=== PATIENT | female | born 1965 | race African-American/Black ===

== ENCOUNTER 2018-03-29 03:59 | Inpatient (IN) | payer MEDICAID ==
[~2018-03-29] VITALS: Ht 167.6 cm; Wt 50.8 kg
[2018-03-29] MEDS ORDERED: IPRATROPIUM BROMIDE (0.02%) 0.5MG/2.5ML NEB HHN STA (05:26)
[2018-03-29] MEDS ORDERED: ALBUTEROL (0.083%) 2.5MG/3ML NEB HHN STA (05:26)
[2018-03-29] MEDS ORDERED: PREDNISONE 20MG TABLET PO STA (05:26)
[2018-03-29] MEDS ORDERED: ALBUTEROL (0.5%) 2.5MG/0.5ML NEB HHN ONE ×2 (05:51→06:45)
[2018-03-29] MEDS ORDERED: IPRATROPIUM/ALBUTEROL 0.5-3(2.5)MG/3ML NEB ONE (05:52)
[2018-03-29] MEDS ORDERED: IPRATROPIUM BROMIDE (0.02%) 0.5MG/2.5ML NEB HHN ONE (06:45)
[2018-03-29 09:31] LABS: BASOPHILS % 0.3 % (0.0-2.0); EOSINOPHILS % 0.5 % (0.0-5.0); HEMATOCRIT. 44.3 % (36.0-48.0); HEMOGLOBIN. 14.3 g/dL (12.0-16.0); LYMPHOCYTES % 11.9 % (20.0-50.0); MEAN CORPUSCULAR HEMOGLOBIN 26.1 pg (28.0-32.0); MEAN CORPUSCULAR VOLUME 80.9 fL (81.0-99.0); MEAN PLATELET VOLUME 7.2 fl (7.4-10.4); NEUTROPHILS % 86.3 % (40.0-76.0); PLATELET 324 x1000/uL (130-400); RED BLOOD CELL COUNT 5.48 mill/uL (4.2-5.4); RED CELL DISTRIBUTION WIDTH 17.2 % (11.6-14.6)
[2018-03-29 09:39] LABS: CHLORIDE 95 mEq/L (98-107)
[2018-03-29 17:27] VITALS: BP 122/81
[2018-03-29 20:00] VITALS: BP 124/77
[2018-03-29 21:45] VITALS: BP 124/77
[2018-03-29] MEDS ORDERED: MAGNESIUM/ALUMINUM HYDROXIDE/SIMETHICONE 30ML UDC PO PRN (23:15)
[2018-03-29] MEDS ORDERED: ONDANSETRON HCL 4MG/2ML INJ IV PRN (23:15)
[2018-03-29] MEDS ORDERED: CLONIDINE 0.1MG TABLET PO PRN (23:15)
[2018-03-29] MEDS ORDERED: GUAIFENESIN 200MG/10ML SUGAR FREE UDC PO PRN (23:15)
[2018-03-29] MEDS ORDERED: ACETAMINOPHEN 325MG TABLET PO PRN (23:15)
[2018-03-30] VITALS: BP 115/68
[2018-03-30] MEDS: OMEPRAZOLE 20MG CAPSULE EXTENDED RELEASE PO SCH ×2 (00:48→10:02)
[2018-03-30 03:03] LABS: CHLORIDE 94 mEq/L (98-107)
[2018-03-30 03:13] LABS: CREATINE KINASE 57 IU/L (26-192); CREATINE KINASE MB FRACTION 1.6 ng/mL (0.5-3.6); HDL CHOLESTEROL 123 mg/dL (40-59); LDL CHOLESTEROL 59 mg/dL (5-100)
[2018-03-30 03:28] LABS: BASOPHILS % 0.4 % (0.0-2.0); HEMATOCRIT. 39.8 % (36.0-48.0); LYMPHOCYTES % 24.2 % (20.0-50.0); MEAN CORPUSCULAR HEMOGLOBIN 26.2 pg (28.0-32.0); MEAN CORPUSCULAR VOLUME 80.3 fL (81.0-99.0); MEAN PLATELET VOLUME 7.5 fl (7.4-10.4); MONOCYTES % 7.5 % (2.0-8.0); NEUTROPHILS % 66.9 % (40.0-76.0); PLATELET 308 x1000/uL (130-400); RED BLOOD CELL COUNT 4.96 mill/uL (4.2-5.4); RED CELL DISTRIBUTION WIDTH 17.4 % (11.6-14.6)
[2018-03-30 04:00] VITALS: BP 121/72
[2018-03-30] MEDS ORDERED: FLUT15.88 BOTHNSTRLS (04:39)
[2018-03-30] MEDS ORDERED: LACT296L PO (04:39)
[2018-03-30] MEDS ORDERED: FAMO20TA8 PO (04:39)
[2018-03-30] MEDS ORDERED: ALBU2.5V13 IH (04:39)
[2018-03-30] MEDS ORDERED: DEXTL MT (04:39)
[2018-03-30] MEDS ORDERED: ALBU6.7H9 INH (04:39)
[2018-03-30] MEDS ORDERED: LACT-252 PO (04:39)
[2018-03-30] MEDS ORDERED: MIRT15TA7 PO (04:39)
[2018-03-30] MEDS ORDERED: ATROV INH (04:39)
[2018-03-30] MEDS ORDERED: ASCO500C15 PO (04:39)
[2018-03-30] MEDS ORDERED: CHOL200074 MT (04:39)
[2018-03-30] MEDS ORDERED: BENZ100C86 PO (04:39)
[2018-03-30] MEDS ORDERED: SODI45SP7 BOTHNSTRLS (04:39)
[2018-03-30] MEDS ORDERED: OMEG-109 MT (04:39)
[2018-03-30] MEDS ORDERED: MONT10TA24 PO (04:39)
[2018-03-30] MEDS ORDERED: MULT1TAB76 MT (04:39)
[2018-03-30 05:24] LABS: BG BASE EXCESS 2.5 mmol/L (-2.0-2.0); BG CARBOXYHEMOGLOBIN 0.7 % (0.5-1.5); BG DEOXYHEMOGLOBIN 2.9 % (0.0-5.0); BG FRACTION INSPIRED OXYGEN 28; BG HCO3 ACT 30.6 mmol/L (22.0-26.0); BG METHEMOGLOBIN 0.4 % (0.0-1.5); BG OXYGEN SATURATION 97.1 % (92.0-98.5); BG PCO2 64.3 mmHg (35.0-45.0); BG PH 7.296 (7.350-7.450); BG PO2 96.4 mmHg (75.0-100.0); BG SAMPLE SITE RIGHT RADIAL; BG TOTAL HEMOGLOBIN 13.2 g/dL (12.0-18.0); BG VENT MODE NASAL CANNULA
[2018-03-30] MEDS: METHYLPREDNISOLONE SOD SUCC 40 MG/ML VIAL IV SCH ×3 (06:22→21:10)
[2018-03-30 07:46] LABS: BASOPHILS % 0.4 % (0.0-2.0); EOSINOPHILS % 1.6 % (0.0-5.0); HEMATOCRIT. 41.2 % (36.0-48.0); HEMOGLOBIN. 13.3 g/dL (12.0-16.0); LYMPHOCYTES % 26.2 % (20.0-50.0); MEAN CORPUSCULAR HEMOGLOBIN 26.2 pg (28.0-32.0); MEAN CORPUSCULAR VOLUME 81.3 fL (81.0-99.0); MEAN PLATELET VOLUME 7.7 fl (7.4-10.4); MONOCYTES % 7.4 % (2.0-8.0); NEUTROPHILS % 64.4 % (40.0-76.0); PLATELET 306 x1000/uL (130-400); RED BLOOD CELL COUNT 5.07 mill/uL (4.2-5.4); RED CELL DISTRIBUTION WIDTH 16.8 % (11.6-14.6)
[2018-03-30 08:00] VITALS: BP 117/77
[2018-03-30] MEDS: ENOXAPARIN 40MG/0.4ML SYR SUBCUT SCH (09:00)
[2018-03-30 12:00] VITALS: BP 113/70
[2018-03-30] MEDS: IPRATROPIUM/ALBUTEROL 0.5-3(2.5)MG/3ML NEB INH PRN (14:51)
[2018-03-30 16:00] VITALS: BP 113/64
[2018-03-30 16:32] LABS: PHOSPHORUS 3.3 mg/dL (2.5-4.9)
[2018-03-30] MEDS: AZITHROMYCIN 500 MG TABLET PO SCH (18:27)
[2018-03-30 20:00] VITALS: BP 128/72
[2018-03-30] MEDS: MIRTAZAPINE 15MG TABLET PO SCH ×2 (21:00→21:10)
[2018-03-30] MEDS: MONTELUKAST SODIUM 10MG TABLET PO SCH (21:10)
[2018-03-30] MEDS: GUAIFENESIN 600MG ER TABLET PO SCH (21:10)
[2018-03-30] MEDS: FAMOTIDINE 20MG TABLET PO SCH (21:10)
[2018-03-31] VITALS: BP 127/77
[2018-03-31 04:00] VITALS: BP 124/61
[2018-03-31] MEDS: METHYLPREDNISOLONE SOD SUCC 40 MG/ML VIAL IV SCH ×3 (06:30→20:32)
[2018-03-31] MEDS: OMEPRAZOLE 20MG CAPSULE EXTENDED RELEASE PO SCH (07:40)
[2018-03-31 08:00] VITALS: BP 118/78
[2018-03-31 08:07] LABS: CHLORIDE 96 mEq/L (98-107)
[2018-03-31 08:15] LABS: BASOPHILS % 0.1 % (0.0-2.0); HEMATOCRIT. 39.1 % (36.0-48.0); HEMOGLOBIN. 12.6 g/dL (12.0-16.0); LYMPHOCYTES % 20.2 % (20.0-50.0); MEAN CORPUSCULAR HEMOGLOBIN 26.2 pg (28.0-32.0); MEAN CORPUSCULAR VOLUME 81.5 fL (81.0-99.0); MEAN PLATELET VOLUME 7.9 fl (7.4-10.4); MONOCYTES % 4.5 % (2.0-8.0); NEUTROPHILS % 75.2 % (40.0-76.0); PLATELET 300 x1000/uL (130-400); RED CELL DISTRIBUTION WIDTH 16.7 % (11.6-14.6)
[2018-03-31] MEDS: FAMOTIDINE 20MG TABLET PO SCH ×2 (09:37→20:32)
[2018-03-31] MEDS: ENOXAPARIN 40MG/0.4ML SYR SUBCUT SCH (09:37)
[2018-03-31] MEDS: DIPHENHYDRAMINE 25MG CAPSULE PO PRN ×2 (09:37→20:32)
[2018-03-31] MEDS: GUAIFENESIN 600MG ER TABLET PO SCH ×2 (09:37→20:32)
[2018-03-31] MEDS: HYDROCODONE/ACETAMINOPHEN 5/325MG TABLET PO PRN ×2 (09:38→13:25)
[2018-03-31 12:00] VITALS: BP 114/67
[2018-03-31 16:00] VITALS: BP 118/66
[2018-03-31] MEDS: AZITHROMYCIN 500 MG TABLET PO SCH (18:58)
[2018-03-31 20:24] LABS: T4 FREE 1.06 ng/dL (0.76-1.46)
[2018-03-31] MEDS: MONTELUKAST SODIUM 10MG TABLET PO SCH (20:32)
[2018-03-31] MEDS: MIRTAZAPINE 15MG TABLET PO SCH (20:32)
[2018-04-01] VITALS: BP 122/83
[2018-04-01 04:00] VITALS: BP 125/71
[2018-04-01] MEDS: METHYLPREDNISOLONE SOD SUCC 40 MG/ML VIAL IV SCH ×2 (06:05→14:15)
[2018-04-01 07:44] VITALS: BP 141/82
[2018-04-01] MEDS: OMEPRAZOLE 20MG CAPSULE EXTENDED RELEASE PO SCH (08:07)
[2018-04-01] MEDS: GUAIFENESIN 600MG ER TABLET PO SCH ×2 (08:26→21:26)
[2018-04-01] MEDS: ENOXAPARIN 40MG/0.4ML SYR SUBCUT SCH (09:00)
[2018-04-01 09:07] LABS: BASOPHILS % 0.2 % (0.0-2.0); HEMATOCRIT. 38.6 % (36.0-48.0); HEMOGLOBIN. 12.5 g/dL (12.0-16.0); LYMPHOCYTES % 16.7 % (20.0-50.0); MEAN CORPUSCULAR HEMOGLOBIN 26.2 pg (28.0-32.0); MEAN CORPUSCULAR VOLUME 81.1 fL (81.0-99.0); MEAN PLATELET VOLUME 7.6 fl (7.4-10.4); MONOCYTES % 3.7 % (2.0-8.0); NEUTROPHILS % 79.4 % (40.0-76.0); PLATELET 341 x1000/uL (130-400); RED BLOOD CELL COUNT 4.76 mill/uL (4.2-5.4); RED CELL DISTRIBUTION WIDTH 16.8 % (11.6-14.6)
[2018-04-01] MEDS: FAMOTIDINE 20MG TABLET PO SCH ×2 (09:38→21:26)
[2018-04-01 10:43] LABS: CHLORIDE 94 mEq/L (98-107)
[2018-04-01 12:00] VITALS: BP 134/79
[2018-04-01 16:00] VITALS: BP 138/77
[2018-04-01] MEDS: AZITHROMYCIN 500 MG TABLET PO SCH (18:46)
[2018-04-01] MEDS: MIRTAZAPINE 15MG TABLET PO SCH (21:26)
[2018-04-01] MEDS: MONTELUKAST SODIUM 10MG TABLET PO SCH (21:26)
[2018-04-02 06:23] LABS: BASOPHILS % 0.1 % (0.0-2.0); EOSINOPHILS % 0.1 % (0.0-5.0); HEMATOCRIT. 41.9 % (36.0-48.0); HEMOGLOBIN. 13.3 g/dL (12.0-16.0); LYMPHOCYTES % 20.4 % (20.0-50.0); MEAN CORPUSCULAR HEMOGLOBIN 25.7 pg (28.0-32.0); MEAN CORPUSCULAR VOLUME 81.3 fL (81.0-99.0); MEAN PLATELET VOLUME 7.4 fl (7.4-10.4); MONOCYTES % 7.5 % (2.0-8.0); NEUTROPHILS % 71.9 % (40.0-76.0); PLATELET 311 x1000/uL (130-400); RED BLOOD CELL COUNT 5.16 mill/uL (4.2-5.4); RED CELL DISTRIBUTION WIDTH 16.7 % (11.6-14.6)
[2018-04-02 06:52] LABS: CHLORIDE 95 mEq/L (98-107)
[2018-04-02] MEDS: OMEPRAZOLE 20MG CAPSULE EXTENDED RELEASE PO SCH (06:56)
[2018-04-02 08:00] VITALS: BP 130/76
[2018-04-02] MEDS: ENOXAPARIN 40MG/0.4ML SYR SUBCUT SCH (09:00)
[2018-04-02] MEDS: FAMOTIDINE 20MG TABLET PO SCH ×2 (09:38→20:40)
[2018-04-02] MEDS: GUAIFENESIN 600MG ER TABLET PO SCH ×2 (09:38→20:32)
[2018-04-02] MEDS: IPRATROPIUM/ALBUTEROL 0.5-3(2.5)MG/3ML NEB INH PRN (09:44)
[2018-04-02] MEDS: PREDNISONE 20MG TABLET PO SCH (09:45)
[2018-04-02 12:00] VITALS: BP 120/86
[2018-04-02 13:11] LABS: BG BASE EXCESS 12.1 mmol/L (-2.0-2.0); BG CARBOXYHEMOGLOBIN 1.4 % (0.5-1.5); BG DEOXYHEMOGLOBIN 6.8 % (0.0-5.0); BG HCO3 ACT 40.2 mmol/L (22.0-26.0); BG METHEMOGLOBIN 0.4 % (0.0-1.5); BG OXYGEN SATURATION 93.1 % (92.0-98.5); BG OXYHEMOGLOBIN 91.4 % (94.0-97.0); BG PCO2 67.7 mmHg (35.0-45.0); BG PH 7.392 (7.350-7.450); BG PO2 64.8 mmHg (75.0-100.0); BG SAMPLE SITE RIGHT BRACHIAL; BG TOTAL HEMOGLOBIN 14.5 g/dL (12.0-18.0); BG VENT MODE NASAL CANNULA
[2018-04-02 14:38] LABS: BG BASE EXCESS 10.2 mmol/L (-2.0-2.0); BG CARBOXYHEMOGLOBIN 1.2 % (0.5-1.5); BG DEOXYHEMOGLOBIN 18.4 % (0.0-5.0); BG FRACTION INSPIRED OXYGEN 21; BG METHEMOGLOBIN 0.4 % (0.0-1.5); BG OXYGEN SATURATION 81.3 % (92.0-98.5); BG PCO2 64.9 mmHg (35.0-45.0); BG PH 7.385 (7.350-7.450); BG PO2 44.1 mmHg (75.0-100.0); BG SAMPLE SITE RIGHT BRACHIAL; BG TOTAL HEMOGLOBIN 14.2 g/dL (12.0-18.0); BG VENT MODE ROOM AIR
[2018-04-02 16:00] VITALS: BP 125/82
[2018-04-02] MEDS: AZITHROMYCIN 500 MG TABLET PO SCH (17:14)
[2018-04-02 20:00] VITALS: BP 133/67
[2018-04-02] MEDS: MIRTAZAPINE 15MG TABLET PO SCH (20:32)
[2018-04-02] MEDS: MONTELUKAST SODIUM 10MG TABLET PO SCH (20:32)
[2018-04-03 00:18] VITALS: BP 122/77
[2018-04-03 04:00] VITALS: BP 124/77
[2018-04-03 07:39] LABS: BASOPHILS % 0.1 % (0.0-2.0); HEMATOCRIT. 38.2 % (36.0-48.0); HEMOGLOBIN. 12.3 g/dL (12.0-16.0); LYMPHOCYTES % 22.1 % (20.0-50.0); MEAN CORPUSCULAR HEMOGLOBIN 26.1 pg (28.0-32.0); MEAN CORPUSCULAR VOLUME 81.2 fL (81.0-99.0); MEAN PLATELET VOLUME 7.6 fl (7.4-10.4); MONOCYTES % 6.6 % (2.0-8.0); NEUTROPHILS % 70.2 % (40.0-76.0); PLATELET 310 x1000/uL (130-400); RED BLOOD CELL COUNT 4.71 mill/uL (4.2-5.4); RED CELL DISTRIBUTION WIDTH 16.3 % (11.6-14.6)
[2018-04-03 07:46] LABS: CHLORIDE 94 mEq/L (98-107)
[2018-04-03] MEDS: PREDNISONE 20MG TABLET PO SCH (08:59)
[2018-04-03] MEDS: FAMOTIDINE 20MG TABLET PO SCH ×2 (08:59→21:40)
[2018-04-03] MEDS: ENOXAPARIN 40MG/0.4ML SYR SUBCUT SCH (08:59)
[2018-04-03] MEDS: GUAIFENESIN 600MG ER TABLET PO SCH ×2 (08:59→21:40)
[2018-04-03] MEDS: BENZONATATE 100MG CAPSULE PO PRN (08:59)
[2018-04-03] MEDS: DOCUSATE SODIUM 100MG CAPSULE PO PRN (08:59)
[2018-04-03] MEDS: IPRATROPIUM/ALBUTEROL 0.5-3(2.5)MG/3ML NEB INH PRN ×2 (09:12→21:46)
[2018-04-03 12:00] VITALS: BP 131/62
[2018-04-03 16:00] VITALS: BP 120/67
[2018-04-03] MEDS: AZITHROMYCIN 500 MG TABLET PO SCH (17:31)
[2018-04-03 20:00] VITALS: BP 119/68
[2018-04-03] MEDS: MIRTAZAPINE 15MG TABLET PO SCH (21:00)
[2018-04-03] MEDS: MONTELUKAST SODIUM 10MG TABLET PO SCH (21:40)
[2018-04-04] VITALS: BP 118/66
[2018-04-04 04:00] VITALS: BP 126/73
[2018-04-04 08:00] VITALS: BP 104/68
[2018-04-04] MEDS: PREDNISONE 20MG TABLET PO SCH (09:23)
[2018-04-04] MEDS: GUAIFENESIN 600MG ER TABLET PO SCH (09:23)
[2018-04-04] MEDS: DOCUSATE SODIUM 100MG CAPSULE PO PRN (09:23)
[2018-04-04] MEDS: ENOXAPARIN 40MG/0.4ML SYR SUBCUT SCH (09:23)
[2018-04-04] MEDS: AZITHROMYCIN 500 MG TABLET PO SCH (09:24)
[2018-04-04] MEDS: FAMOTIDINE 20MG TABLET PO SCH (09:24)
[2018-04-04] MEDS: BENZONATATE 100MG CAPSULE PO PRN (09:24)
[2018-04-04 12:00] VITALS: BP 125/73
[2018-04-04] MEDS ORDERED: GUAI600T44 PO (14:53)
[2018-04-04] MEDS ORDERED: MED4 MT (14:53)
[2018-04-04] MEDS ORDERED: FLUT1DIS3 INH (14:53)
[2018-04-04 15:36] VITALS: BP 125/73
[2018-04-04 17:29] VITALS: BP 116/68
== END 2018-04-04 17:30 | disposition home or self-care (01) | DRG 140 ==
LOC: ER 03:59 → 7WST 09:53 → ENRESERV 15:36
PROVIDERS: ADMIT Internal Medicine; ATTEND Internal Medicine
PROC: 5A09357 Assistance with Respiratory Ventilation, Less than 24 Consecutive Hours, Continuous Positive Airway Pressure (ICD-10-PCS; principal; 2018-03-30)
PROC: 5A09357 Assistance with Respiratory Ventilation, Less than 24 Consecutive Hours, Continuous Positive Airway Pressure (ICD-10-PCS; 2018-03-31)
DX: J44.1 Chronic obstructive pulmonary disease with (acute) exacerbation (principal); J96.02 Acute respiratory failure with hypercapnia; J84.10 Pulmonary fibrosis, unspecified; E87.2 Acidosis; J11.1 Influenza due to unidentified influenza virus with other respiratory manifestations; Z66 Do not resuscitate; Z79.899 Other long term (current) drug therapy; Z87.891 Personal history of nicotine dependence; Z87.01 Personal history of pneumonia (recurrent); Z88.1 Allergy status to other antibiotic agents
CPT/HCPCS: 36415; 36600; 71045; 80048; 80061; 82375; 82550; 82553; 82805; 83036; 83735; 84100; 84439; 84443; 84481; 84484; 86710; 93005; 93970; 94640; 94660; 99285; J1650; J2920; J7512; J7611; J7620; Q0163